=== PATIENT | male | born 1970 | race Caucasian/White ===

== ENCOUNTER 2018-02-23 12:09 | Day surgery (SDC) | payer OTHER, SELFPAY ==
[2018-02-23 13:00] VITALS: BP 118/70; PULSE 50; RESP 17; TEMP 36.6; O2SAT 99; BMI 27.8
[2018-02-23] MEDS: SODIUM CHLORIDE 0.9% 1,000 ML 21 ML IV (13:00)
[2018-02-23] MEDS: fentaNYL 250 MCG/5 ML INJ IV (14:03)
[2018-02-23] MEDS: MIDAZOLAM 5 MG/5 ML VIAL IV (14:03)
--- NOTE | 2018-02-23 14:05 | PM.HP.1 ---
History of Present Illness Date Patient Seen: 02/23/18 Time Patient Seen: 14:06 Chief complaint: colonoscopy [id number] Narrative: Screening Patient History Medical History Hypertension (Acute) Family & Social History Social History: household members spouse Meds Home Medications Medication Instructions Recorded Confirmed Type One-A-Day Essential DAILY 02/23/18 History losartan 100 mg DAILY 02/23/18 02/23/18 History Allergies Allergy/AdvReac Type Severity Reaction Status Date / Time No Known Drug Allergies Allergy Verified 02/23/18 12:58 Exam Vital Signs (past 8 hours): - 02/23/18 13:00 Temperature 97.8 F Pulse Rate 50 L Respiratory Rate 17 Blood Pressure 118/70 Pulse Oximetry 99 Oxygen Delivery Method Room Air Narrative Exam Narrative: Oropharynx free of lesions Chest clear to auscultation and percussion Cardiac exam reveals no S3 or murmur Assessment & Plan Plan: Assessment/Plan Narrative: Need for colorectal cancer screening. Proceed to colonoscopy.
--- NOTE | 2018-02-23 14:06 | PM.OP.ENDO ---
Operative Date/Time/Diagnoses Date of procedure: 02/23/18 Time of procedure: 14:07 Pre-op diagnosis: See indication Procedure & Clinicians Study performed: Colonoscopy Same procedure as scheduled: Yes Indications: Screening Surgeon: Pippa Ayala Procedure Notes Procedure in detail: After informed consent was obtained the patient was placed in the left lateral decubitus position. Video colonoscope was introduced the rectum slowly advanced to the cecum. Preparation was excellent. On slow withdrawal mucosa was carefully examined. Scope was removed patient tolerated the tolerated procedure well. Blood loss none Complication none Sedation Fentanyl 100 mcg Versed 8 mg IV titration Total sedation time 17 min Findings 1. Normal colonoscopy to cecum Patient will need follow-up colonoscopy in 10 years
[2018-02-23 14:08] VITALS: BP 89/56; PULSE 64; RESP 12; TEMP 36.1; O2SAT 96
[2018-02-23 14:11] VITALS: BP 114/72; PULSE 66; RESP 14; O2SAT 96
[2018-02-23 14:18] VITALS: BP 103/62; PULSE 56; RESP 14; TEMP 36.4; O2SAT 96
== END 2018-02-23 14:30 | disposition home or self-care (01) ==
PROVIDERS: PCP General Practice; Visit Provider Internal Medicine Gastroenterology
PROC: 0DJD8ZZ Inspection of Lower Intestinal Tract, Via Natural or Artificial Opening Endoscopic (ICD-10-PCS; CPT 45378; principal; 2018-02-23 14:00)
DX: Z12.11 Encounter for screening for malignant neoplasm of colon (principal); I10 Essential (primary) hypertension
CPT/HCPCS: 45378; J2250; J3010